=== PATIENT | female | born 1950 | race Caucasian/White ===

== ENCOUNTER 2018-12-25 14:05 | Emergency (ER) | payer MEDICAID, OTHER ==
[~2018-12-25] VITALS: Ht 149.9 cm; Wt 45.5 kg
[~2018-12-25 14:05] MED LIST: ACET325T21 PO; CALCIUM PO; CEFD300C37 PO; ERGO500017 PO; HYDR-3237 PO; MULT-508 PO; MULT-750 PO; TEMA30CA PO
[2018-12-25] MEDS ORDERED: FENTANYL PF 100 MCG/2ML ONE (15:16)
[2018-12-25] MEDS ORDERED: FENTANYL PF 100 MCG/2ML IV ONE (15:30)
[2018-12-25] MEDS ORDERED: PLEASE ENTER HEIGHT AND WEIGHT MC SCH (15:30)
[2018-12-25 15:51] VITALS: BP 113/64
== END 2018-12-25 16:15 | disposition home or self-care (01) ==
LOC: ED 16:05
DX: S42.332A Displaced oblique fracture of shaft of humerus, left arm, initial encounter for closed fracture (principal); W18.30XA Fall on same level, unspecified, initial encounter; Y93.89 Activity, other specified; Y92.009 Unspecified place in unspecified non-institutional (private) residence as the place of occurrence of the external cause; Y99.8 Other external cause status
CPT/HCPCS: 29105; 73090; 96374; 99283; J3010